=== PATIENT | female | born 1960 | race Caucasian/White ===

== ENCOUNTER 2017-10-16 22:46 | Emergency (ER) | payer SELFPAY ==
[~2017-10-16] VITALS: Ht 170.2 cm; Wt 62.3 kg
[~2017-10-16 22:46] MED LIST: AMT10 PO; CYCL10TA6 PO; IBUP-1427 PO; NAPR-1169 PO; PRED10TA PO; TRIA0.1C55 TOP; [UNRECOGNIZED DRUG - CODE] TOP
[2017-10-16 22:50] VITALS: TEMP 36.8; Ht 170.2 cm; Wt 62.3 kg
[2017-10-16] MEDS ORDERED: PIPERACILLIN/TAZOBACTAM 4.5 GM/100ML D5W IV STA (23:05)
[2017-10-16] MEDS ORDERED: VANCOMYCIN IV 1,000 MG in SODIUM CHLORIDE 0.9% 250ML 250 ML IV STA (23:05)
[2017-10-16] MEDS ORDERED: MoRPHine SULFATE 4 MG/ML 1 ML CARP\\VIAL IV ONE (23:15)
[2017-10-16] MEDS ORDERED: SODIUM CHLORIDE 0.9% 1000ML 1,000 ML IV ONE (23:15)
[2017-10-16 23:45] LABS: BASO % 0.3 %; BASO ABS # 0.04 K/uL (0-0.2); EOS % 2.7 %; EOS ABS # 0.33 K/uL (0-0.5); HEMATOCRIT 38.5 % (37-47); IG# 0.03 K/uL (0.00-0.02); LYMPH % 12.4 %; LYMPH ABS # 1.52 K/uL (1.2-3.4); MEAN CELL VOLUME 91.9 fL (80-100); MEAN CORPUSCULAR HGB CONC 33.8 g/dl (32-36); MEAN PLATELET VOLUME 9.2 fL (7.4-10.4); MONO % 7.8 %; MONO ABS # 0.96 K/uL (0.11-0.59); NEUT % 76.6 %; PLATELET COUNT 314 K/uL (130-400); RED CELL DISTRIBUTION WIDTH CV 12.9 % (11.5-14.5); RED CELL DISTRIBUTION WIDTH SD 43.4 fL (36.4-46.3); WHITE BLOOD COUNT 12.28 K/uL (4.8-10.8)
[2017-10-16] MEDS ORDERED: OPTIRAY 320 IV PRN (23:45)
[2017-10-17] MEDS ORDERED: VANCOMYCIN 1GM ED/ASU OMNICELL ONE
[2017-10-17 00:20] LABS: ALBUMIN 3.5 gm/dl (3.4-5.0); CALCIUM 9.2 mg/dl (8.5-10.1); CREATININE 0.93 mg/dl (0.60-1.20); POTASSIUM 3.6 mmol/L (3.5-5.1); TOTAL PROTEIN 8.4 gm/dl (6.4-8.2)
[2017-10-17] MEDS ORDERED: LIDOCAINE 1% BUFFERED INJ 5 ML VIAL INFIL ONE (01:45)
[2017-10-17] MEDS ORDERED: SULF800T23 PO (03:04)
[2017-10-17] MEDS ORDERED: OXYC1TAB3 PO (03:04)
[2017-10-17] MEDS ORDERED: AMOX875T PO (03:04)
[2017-10-17] MEDS ORDERED: OXYCODONE IR HOME PACK PO ONE (03:15)
[2017-10-17 03:20] VITALS: BP 157/78; PULSE 82; O2SAT 98
--- NOTE | 2017-10-17 05:58 | EMERGENCY ROOM VISIT NOTE ---
History First contact with patient: 22:54 Chief Complaint: FALL Stated Complaint: FELL History of Present Illness The patient is a 57 year old female who presents to the Emergency Room with complaints of injury and possible infection to her chin. Evidently the patient suffered a mechanical fall about 7 days ago where she struck her chin off of something. The patient has been taking care of this at home, but evidently the past 3 days has had worsening swelling as well as drainage and discharge from the chin itself. The patient has a history of dental infection, but wears both upper and lower dentures now. She has not been able to place her lower dentures because of the pain of her chin. She is taking [id number] analgesics without any significant improvement of symptoms. No fever is reported. She rates her pain a 9/10 without radiation. Review of Systems More than 10 systems were reviewed and otherwise negative with the exception of history of present illness. Past Medical/Surgical History No pertinent chronic medical disease Family History No pertinent family history Social History Smoking Status: Current Every Day Smoker Housing Status: lives alone Occupation Status: employed Current/Historical Medications Scheduled Amitriptyline HCl (Amitriptyline HCl), 5 MG PO HS Amoxicillin & Pot Clavulanate (Augmentin 875-125 mg), 1 TAB PO BID Cyclobenzaprine Hcl (Flexeril), 10 MG PO TID Oxycodone Immediate Rel Tab (Roxicodone Ir), 1-2 TAB PO Q6 Permethrin ([facility] Permethrin), 1 DOSE TOP DIRECTED Prednisone Tab (Prednisone), 10 MG PO DIRECTED Sulfa/Trimethoprim (Bactrim Ds 800MG/160MG), 1 TAB PO BID Triamcinolone Acet 0.1% (Aristocort 0.1%), 1 DOSE TOP BID Scheduled PRN Ibuprofen Tab (Motrin), 600 MG PO Q6H PRN for Pain Naproxen (Naprosyn), 500 MG PO BID PRN for Pain Physical Exam Vital Signs Date Time Temp Pulse Resp B/P (MAP) Pulse Ox O2 Delivery O2 Flow Rate FiO2 10/17/17 03:20 82 20 157/78 98 10/17/17 03:00 82 20 157/78 98 Room Air 10/17/17 00:54 80 20 145/71 98 Room Air 10/16/17 22:50 36.8 90 18 147/70 96 Room Air Physical Exam VITALS: Vitals are noted on the nurse's note and reviewed by myself. Vital signs stable. GENERAL: White female who is in mild discomfort secondary to her stated complaint HEAD: Obvious abscess is appreciated on the inferior aspect of the chin with some surrounding cellulitis to the left lateral face. Drainage is noted inferiorly that appears purulent. Culture was obtained. EARS: External ear normal. External auditory canals clear, tympanic membranes pearly chavis without erythema or effusion bilaterally. EYES: Pupils equal round and reactive to light and accommodation. Conjunctivae without injection, sclerae without icterus. Extraocular movements intact. NOSE: Patent, turbinates without inflammation or discharge. MOUTH: Mucous membranes moist. Tonsils are not enlarged. Pharynx without erythema, blood, or exudate. Uvula midline. Airway patent. No tenderness or swelling underneath the tongue. She is handling her own secretions. NECK: Supple without nuchal rigidity. No lymphadenopathy. No thyromegaly. Cervical spine is nontender. HEART: Regular rate and rhythm without murmurs gallops or rubs. LUNGS: Clear to auscultation bilaterally without wheezes, rales or rhonchi. No retractions or accessory muscle use. Medical Decision & Procedures ER Provider Diagnostic Interpretation: Preliminary Findings Only See Final Report For Complete Findings CT NECK: Fluid collection near the patient's chin measures 2.9 x 1.4 cm and likely represents abscess. Laboratory Results 10/16/17 23:25 Red Blood Count 4.19, Mean Corpuscular Volume 91.9, Mean Corpuscular Hemoglobin 31.0, Mean Corpuscular Hemoglobin Concent 33.8, Mean Platelet Volume 9.2, Neutrophils (%) (Auto) 76.6, Lymphocytes (%) (Auto) 12.4, Monocytes (%) (Auto) 7.8, Eosinophils (%) (Auto) 2.7, Basophils (%) (Auto) 0.3, Neutrophils # (Auto) 9.40, Lymphocytes # (Auto) 1.52, Monocytes # (Auto) 0.96, Eosinophils # (Auto) 0.33, Basophils # (Auto) 0.04 10/16/17 23:25 Test 10/16/17 23:25 10/16/17 23:29 White Blood Count 12.28 K/uL (4.8-10.8) Red Blood Count 4.19 M/uL (4.2-5.4) Hemoglobin 13.0 g/dL (12.0-16.0) Hematocrit 38.5 % (37-47) Mean Corpuscular Volume 91.9 fL (80-100) Mean Corpuscular Hemoglobin 31.0 pg (25-34) Mean Corpuscular Hemoglobin Concent 33.8 g/dl (32-36) Platelet Count 314 K/uL (130-400) Mean Platelet Volume 9.2 fL (7.4-10.4) Neutrophils (%) (Auto) 76.6 % Lymphocytes (%) (Auto) 12.4 % Monocytes (%) (Auto) 7.8 % Eosinophils (%) (Auto) 2.7 % Basophils (%) (Auto) 0.3 % Neutrophils # (Auto) 9.40 K/uL (1.4-6.5) Lymphocytes # (Auto) 1.52 K/uL (1.2-3.4) Monocytes # (Auto) 0.96 K/uL (0.11-0.59) Eosinophils # (Auto) 0.33 K/uL (0-0.5) Basophils # (Auto) 0.04 K/uL (0-0.2) RDW Standard Deviation 43.4 fL (36.4-46.3) RDW Coefficient of Variation 12.9 % (11.5-14.5) Immature Granulocyte % (Auto) 0.2 % Immature Granulocyte # (Auto) 0.03 K/uL (0.00-0.02) Erythrocyte Sedimentation Rate 71 mm/hr (0-21) Anion Gap 6.0 mmol/L (3-11) Est Creatinine Clear Calc Drug Dose 66.5 ml/min Estimated GFR () 80.2 Estimated GFR (Non- 69.2 BUN/Creatinine Ratio 9.7 (10-20) Calcium Level 9.2 mg/dl (8.5-10.1) Total Bilirubin 0.4 mg/dl (0.2-1) Aspartate Amino Transf (AST/SGOT) 19 U/L (15-37) Alanine Aminotransferase (ALT/SGPT) 25 U/L (12-78) Alkaline Phosphatase 105 U/L (45-117) C-Reactive Protein 11.40 mg/dl (0-0.29) Total Protein 8.4 gm/dl (6.4-8.2) Albumin 3.5 gm/dl (3.4-5.0) Globulin 4.9 gm/dl (2.5-4.0) Albumin/Globulin Ratio 0.7 (0.9-2) Bedside Lactic Acid Venous 0.48 mmol/L (0.90-1.70) Medications Administered Medications (Trade) Dose Ordered Sig/Yamini Route Start Time Stop Time Status Last Admin Dose Admin Vancomycin HCl 1000 mg/Sodium Chloride 270 ml @ 125 mls/hr NOW STAT IV 10/16/17 23:05 10/17/17 01:14 DC 10/17/17 00:15 125 MLS/HR Piperacillin Sod/ Tazobactam Sod (Zosyn Iv) 4.5 gm NOW STAT IV 10/16/17 23:05 10/16/17 23:12 DC 10/16/17 23:34 4.5 GM Morphine Sulfate (MoRPHine SULFATE INJ) 4 mg NOW ONCE IV 10/16/17 23:15 10/16/17 23:16 DC 10/16/17 23:34 4 MG Sodium Chloride 1,000 ml @ 999 mls/hr Q1H1M ONCE IV 10/16/17 23:15 10/17/17 00:15 DC 10/16/17 23:34 999 MLS/HR Oxycodone HCl (Roxicodone Immediate Rel 5MG Home Pack) 1 homepack UD ONCE PO 10/17/17 03:15 10/17/17 03:16 DC 10/17/17 03:19 1 HOMEPACK Procedure Incision and Drainage I examined the patient. Verbal consent was obtained to perform the procedure. After saline and Betadine cleansing and 10 mL of 1% buffered lidocaine anesthesia, the abscess was probed with an 18-gauge needle. A small amount of purulent material was released with more expressed by pressure. A swab was obtained for culture. The abscess cavity was further probed with a needle substitute bus driver and the deep pocket expressed. The abscess cavity was then copiously irrigated with sterile saline under pressure. The area was cleaned with sterile saline and dressed with bacitracin and a bulky bandage. The patient tolerated the procedure well. ED Course Physical exam and history were performed. Nursing notes, EMR, and Medication List were personally reviewed. Patient appears to have infection to her chin that has been ongoing for the past several days. The patient appears quite uncomfortable from this. She is afebrile and not tachycardic. IV access was established and labs were obtained. Blood and wound cultures were gathered. The patient was treated with IV morphine, IV vancomycin, and IV Zosyn. The case was discussed with my attending physician who remain closely involved in care and decision-making. CT scan was ordered to better categorize the patient's infection. The patient's blood work is as above and was reviewed. She has an elevated white blood cell count of greater than 12,000. She does have associated bandemia. Lactic acid is negative. Her other labs are fairly unremarkable. CT scan reveals a fluid collection consistent with abscess. CT findings and blood work were discussed at length with the patient. She voices a very strong desire to be discharged home, and does not wish to be admitted to the facility. The patient's boyfriend, as well as nursing, also discussed that we felt this was in her best interest, but she declined. I did attempt incision and drainage as above but feel that I was only minimally successful. She had difficulty tolerating manipulation of the area, and I am concerned that she will need to follow with the maxillofacial surgery team. Because of the holiday weekend and her desire for discharge home return to the ER tomorrow for recheck of her symptoms. I will start her on Bactrim and Augmentin pending culture. I did involve case management to help facilitate her appointment with maxillofacial. She was thoroughly educated on the importance of returning to the ER promptly if symptoms worsened. She will be given a short course of pain medication. She was discharged home under the care of a male pallet stone inserter who is acting as a substitute bus driver. The chart was completed utilizing [employer] Speech Voice Recognition Software. Grammatical errors, random word insertions, pronoun errors, and incomplete sentences are an occasional consequence of this system due to software limitations, ambient noise, and hardware issues. Any formal questions or concerns about the content, text, or information contained within the body of this dictation should be directly addressed to the provider for clarification. . Medical Decision Differential diagnosis: Etiologies such as cellulitis, abscess, MRSA infection, DVT, necrotizing fasciitis, dermatitis, drug eruption, as well as others were entertained.. Impression Primary Impression: Facial abscess Departure Information Dispostion Home / Self-Care Condition GOOD Prescriptions Oxycodone Immediate Rel Tab (ROXICODONE IR) 5 Mg Tab 1-2 TAB PO Q6 for Pain, #15 TAB Prov: Enrike Corcoran PA-C 10/17/17 Amoxicillin & Pot Clavulanate (Augmentin 875-125 mg) 1 Tab Tab 1 TAB PO BID for 10 Days, #20 TAB Prov: Enrike Corcoran PA-C 10/17/17 Sulfa/Trimethoprim (Bactrim Ds 800MG/160MG) Tab 1 TAB PO BID for 10 Days, #20 TAB Prov: Enrike Corcoran PA-C 10/17/17 Referrals Fredi Serra D.D.S. Emergency Department Case Management will contact Dr. Serra's office to schedule your appointment. Emergency Department Case Management will contact you directly with appointment details. If you are not called with an appointment , or have questions, please feel free to contact Emergency Department Case Management at [phone]. No Doctor, Assigned (PCP) Forms HOME CARE DOCUMENTATION FORM, IMPORTANT VISIT INFORMATION Patient Instructions My [facility] Additional Instructions You were seen and evaluated today on an emergency basis only. This is not a substitute for, or an effort to provide, complete comprehensive medical care. It is not possible to recognize and treat all injuries or illnesses in a single emergency department visit. For this reason it is recommended that you followup back in the emergency department in 24-36 hours for recheck. For baseline pain relief you may alternate ibuprofen and acetaminophen every 4 hours for pain control. Take 600 mg ibuprofen (Advil) and then 4 hours later take 1000 mg acetaminophen (Tylenol). Do not take more than 3000 mg acetaminophen in a single day. Oxycodone (OxyIR) 5mg: Take ONE or TWO pills every SIX hours for breakthrough pain. Avoid alcohol, operating machinery or dangerous equipment, working on ladders or roofs, DRIVING, or situations where being under the influence may be dangerous. It is recommended to use an [id number] stool softener such as Colace, 100mg twice daily while taking this medication to avoid constipation. Trimethoprim-Sulfamethoxazole(Bactrim DS): Take one pill twice daily for 10 days for your skin infection. All antibiotics can cause diarrhea. If this occurs and you feel worse or it does not resolve in 1-2 days follow up with your doctor or return to the Emergency Department as this could be signs of serious underlying problems. Any medication can cause an allergic reaction, stop the pills immediately and return to the ER for rash, hives, breathing difficulties, or swelling. Amoxicillin Clavulanate (Augmentin) 875mg: Take one pill twice daily for 10 days for your infection. All antibiotics can cause diarrhea. If this occurs and you feel worse or it does not resolve in 1-2 days follow up with your doctor or return to the Emergency Department as this could be signs of serious underlying problems. Any medication can cause an allergic reaction, stop the pills immediately and return to the ER for rash, hives, breathing difficulties, or swelling. You will need to follow with the facial specialist, Dr. Serra, on Thursday or Thursday this next coming week. Please call them to make the appointment. If you have challenges making the appointment, please call us ([phone]) and speak to a rehabilitation caseworker. You are welcome to return to the emergency department anytime with new, worsening, or concerning symptoms.
--- NOTE | 2017-10-17 07:03 | DIAGNOSTIC IMAGING REPORT ---
CT NECK WITH INTRAVENOUS CONTRAST HISTORY: Fall. Chin injury now infected. Mandible swelling left side TECHNIQUE: Multiaxial CT images of the neck were performed following the use of intravenous contrast. COMPARISON STUDY: None. FINDINGS: The visualized brain parenchyma and orbits are unremarkable. The major mucosal airway surfaces are intact. Prevertebral soft tissues and the epiglottis are normal in thickness. The thyroid gland enhances normally. The lung apices are clear. The paranasal sinuses and mastoid air cells are clear. No fractures within the visualized osseous structures. Mild submental and submandibular lymphadenopathy. The parotid and submandibular glands are symmetric. Small focus of calcified plaque within the bilateral carotid bifurcations. The major cervical vessels are widely patent. Skin thickening and subcutaneous fat stranding within the chin. There is also a peripheral enhancing 2.2 x 1.4 cm fluid collection within the left side of the chin. This likely represents an abscess. IMPRESSION: 1. A 2.2 x 1.4 cm peripheral enhancing fluid collection within the soft tissues of the chin. This likely represents an abscess. 2. Submental and submandibular lymphadenopathy which is likely reactive. Electronically signed by: Kevin Mendoza M.D. 10/17/2017 7:02 AM Dictated Date/Time: 10/17/2017 6:57 AM
== END 2017-10-17 03:21 | disposition home or self-care (01) ==
LOC: C.EDB 22:47
DX: L02.01 Cutaneous abscess of face (principal); W01.198A Fall on same level from slipping, tripping and stumbling with subsequent striking against other object, initial encounter; F17.200 Nicotine dependence, unspecified, uncomplicated; Z79.52 Long term (current) use of systemic steroids; Z79.899 Other long term (current) drug therapy